=== PATIENT | male | born 1955 | race Caucasian/White ===

== ENCOUNTER 2018-08-29 00:10 | Inpatient (IN) | payer OTHER ==
[~2018-08-29] VITALS: Ht 172.7 cm; Wt 59.0 kg
--- NOTE | 2018-08-30 00:35 | NUR ---
PRE ADMISSION NOTE 63 y/o male seen at intake, A&O x 4 and is ambulatory with steady gait. 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 Pt reports last using heroin last night and is currently in withdrawal, reports last drinking ETOH this morning but denies feeling S/S of withdrawal at this time. Vital signs: BP 143/88, HR 70, RR 16, 02 98%, T 98.5, and pain 10/10. Pt reports he has pain in neck and back, which is chronic and is related to why he uses. Pt is stable to come to unit. Unit policies and protocols explained to pt. Endorsed to primary care nurse for continuation of care.
[2018-08-30] MEDS ORDERED: BUPRENORPHINE HCL 2 MG TAB.SUBL SL PRN (01:00)
[2018-08-30] MEDS ORDERED: IBUPROFEN 600 MG TABLET PO PRN (01:00)
[2018-08-30] MEDS ORDERED: MAGNESIUM HYDROXIDE 30 ML LIQUID UDC PO PRN (01:00)
[2018-08-30] MEDS ORDERED: MIRALAX 17 GM POWD.PACK PO PRN (01:00)
[2018-08-30] MEDS ORDERED: ONDANSETRON 4 MG/2 ML VIAL IM PRN (01:00)
[2018-08-30] MEDS ORDERED: THIAMINE HCL 200 MG/2 ML VIAL IM ONE (01:00)
[2018-08-30] MEDS ORDERED: ACETAMINOPHEN 325 MG TABLET PO PRN (01:00)
[2018-08-30] MEDS ORDERED: HYDROXYZINE PAMOATE 25 MG CAPSULE PO PRN (01:00)
[2018-08-30] MEDS ORDERED: LOPERAMIDE HCL 2 MG CAPSULE PO PRN ×2 (01:00)
[2018-08-30] MEDS ORDERED: CLONIDINE HCL 0.1 MG TABLET PO PRN (01:00)
[2018-08-30] MEDS ORDERED: DIAZEPAM 5 MG TABLET PO PRN (01:00)
[2018-08-30] MEDS ORDERED: DICYCLOMINE HCL 20 MG TABLET PO PRN (01:00)
[2018-08-30] MEDS ORDERED: MAG HYDROX/AL HYDROX/SIMETH 30 ML LIQUID UDC PO PRN (01:00)
[2018-08-30] MEDS ORDERED: ONDANSETRON ODT 4 MG TAB.RAPDIS SL PRN (01:00)
[2018-08-30] MEDS ORDERED: DIAZEPAM 10 MG TABLET PO PRN ×2 (01:00)
[2018-08-30 01:08] LABS: BASOPHILS % (AUTO) 0.5 % (0.0-2.0); EOSINOPHILS # (AUTO) 0.1 K/uL (0.0-0.7); EOSINOPHILS % (AUTO) 1.1 % (0.0-7.0); HEMATOCRIT 46.9 % (36.7-47.1); HEMOGLOBIN 15.6 g/dL (12.5-16.3); LYMPHOCYTES % (AUTO) 25.4 % (20.5-51.5); MEAN CORPUSCULAR HEMOGLOBIN 27.4 uug (23.8-33.4); MEAN CORPUSCULAR HGB CONC 33 g/dL (32.5-36.3); MEAN CORPUSCULAR VOLUME 82.7 fL (73.0-96.2); MONOCYTES # (AUTO) 0.5 K/uL (2.0-10.0); MONOCYTES % (AUTO) 6.8 % (0.0-11.0); NEUTROPHILS # (AUTO) 5.1 K/uL (1.8-8.9); NEUTROPHILS % (AUTO) 66.2 % (38.5-71.5); PLATELET COUNT (AUTO) 202 K/uL (152-348); RED BLOOD CELL COUNT(AUTO) 5.68 MIL/uL (4.06-5.63); WHITE BLOOD COUNT (AUTO) 7.8 K/uL (3.6-10.2)
[2018-08-30 01:19] LABS: *AMPHETAMINE, URINE NEGATIVE (NEGATIVE); *BARBITURATE, URINE NEGATIVE (NEGATIVE); *CANNABINOID, URINE NEGATIVE (NEGATIVE); *COCCAINE, URINE NEGATIVE (NEGATIVE); *OPIATE, URINE POSITIVE (NEGATIVE); *PHENCYCLIDINE SCREEN,URINE NEGATIVE (NEGATIVE)
[2018-08-30 01:25] LABS: ETHANOL < 3 MG/DL (0-0)
[2018-08-30] MEDS: METHOCARBAMOL 750 MG TABLET PO PRN ×2 (01:40→20:27)
[2018-08-30] MEDS: diphenhydrAMINE 50 MG CAPSULE PO PRN (01:40)
--- NOTE | 2018-08-30 01:40 | NUR ---
PRN Valium, Subutex , Benadryl, Robaxin and Motrin Patient presents with anxiety, restlessness, hot and cold sweats, stuffy nose, abdominal cramping, has bilateral hand tremors, sensitive to light , muscle aches and headache. COWS 12 and CIWA 8. Will monitor for effectiveness
[2018-08-30 01:47] LABS: ALANINE AMINOTRANSFERASE 20 U/L (16-63); ALKALINE PHOSPHATASE 63 U/L (50-136); AMYLASE 15 U/L (25-115); ASPARTATE AMINOTRANSFERASE 11 U/L (15-37); BILIRUBIN,TOTAL 1.2 mg/dL (0.2-1.0); CARBON DIOXIDE 30 mmol/L (21-32); CHLORIDE 103 mmol/L (98-107); CREATININE 1.1 mg/dL (0.6-1.3); GLUCOSE 105 mg/dL (74-106); LIPASE 90 U/L (73-393); POTASSIUM 3.8 mmol/L (3.5-5.1); TOTAL PROTEIN, SERUM 7.5 g/dL (6.4-8.2); UREA NITROGEN, BLOOD 11 mg/dL (7-18)
[2018-08-30 01:51] LABS: THYROID STIMULATING HORMONE 0.213 mIU/mL (0.358-3.740)
--- NOTE | 2018-08-30 02:00 | NUR ---
Admission note Patient arrived at the unit at 0055. Patient is a 63 year old male who presents to [facility] for ETOH and Opiate withdrawal. Body check done. Skin intact. Patient is full code and on regular diet. Patient reports PMH of anxiety and depression. Chronic back pain. Patient is not on medication for his anxiety and depression. No surgeries. No seizure history . Patient has no overdose, blackouts, suicide attempt and 5150 history. Patient lives in [place]. 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 He explained that he wants to better his life as the reason why he's seeking for treatment ."I want to save my job". He stated that his job is in jeopardy as the consequences for his drinking and using. Cravings and friends who are also using are the barriers for him getting and staying sober. He would continue to attend AA after his treatment here. Two years is his longest period sobriety in 2013. Substance Abuse History 1.Alcohol (Muna ) -started drinking at age 15. Patient is currently drinking 1.5 pint daily for 8 1/2 months. Last drink was 1.5 pint of muna on 08/29/18 in AM 2.Heroin (snort)-started using at age 15. Patient is currently snorting 0.5 gram daily for 8 1/2 months. Last use was 0.5 gram on 08/29/18 at 2 am Treatment History [facility] - 2 years ago - 60 days . He's been to two treatment center but he's unable to recall the name of the other facility. Patient does not have PCP. He refused Pneumonia and Flu vaccine. Educate patient. Patient smokes 1 pack of cigarette daily. Patient is not intoxicated. The typical withdrawal symptoms are depression, sweating , tremors, headache and nausea. The current withdrawal symptoms are anxiety, restlessness, hot and cold sweats, stuffy nose, abdominal cramping, has bilateral hand tremors, sensitive to light , muscle aches and headache. COW 12 and CIWA 8. UA provided and lab drawn. He brought one tube of ammonia lactate ointment. He states that he is taking Seroquel 100 mg at bedtime for sleep. Patient oriented to surroundings and how to use call light. Safety measures in place. Call light in reach. Will continue to monitor.
--- NOTE | 2018-08-30 02:40 | NUR ---
EZEQUIELN Valium, Subutex, Benadryl, Robaxin and Motrin Patient lying in bed with eyes closed. Respiration even and unlabored. Will continue to monitor Addendum: 08/30/18 at 0640 by ELMER GREGORIO LVN No facial grimacing
--- NOTE | 2018-08-30 04:00 | NUR ---
COWS and CIWA deferred Patient lying in bed with eyes closed. Respiration even and unlabored. Will continue to monitor.
[2018-08-30] MEDS ORDERED: QUET100T PO (04:42)
[2018-08-30] MEDS ORDERED: AMMO385C4 TP (04:53)
[2018-08-30 06:00] VITALS: BP 135/62
--- NOTE | 2018-08-30 07:28 | NUR ---
End of shift note Patient slept 4 hours. Fluid intake 500 ml. Voided x 1. NO BM. Monitored patient throughout shift. Patient presented with anxiety, restlessness, hot and cold sweats, stuffy nose, abdominal cramping, has bilateral hand tremors, sensitive to light , muscle aches and headache. Patient was given PRN Valium , Subutex, Benadryl , Robaxin and Motrin. Last cows 12 and CIWA 8. Will continue to monitor
--- NOTE | 2018-08-30 07:30 | NUR ---
Start Of Shift Report received from lead recoverer nurse. Patient is a 63 year old male who presents to [facility] for ETOH and Opiate withdrawal. Per lead recoverer nurse pt's last CIWA was 8 and COWS was a 12. Pt is on a 3 day Valium and 3 Day Subutex tapers. Upon start of shift pt noted laying in his bed with his eyes closed resting, breathing even and unlabored. When greeted pt stated " Im feeling terrible can I please have my morning medications so I can feel better". Pt's room appears unorganized, pt has water and soda bottles around the room. Pt appears anxious, sweaty and flushed. During assessment, pt is AOx4. Lung sounds clear bilaterally. Radial pulse is regular and non-bounding. Abdomen soft and non-tender. Pt's skin is warm and intact. pt denies any pain at the moment. Encouraged pt to drink plenty of fluids to keep hydrated compensate for the water lost through sweat and help speed up the detox process. Pt received PRN Valium 5mg Subutex 4mg, Benadryl 50mg, Robaxin 750mg and Motrin 600mg, for withdrawal symptoms, generalized pain and insomnia, medication was effective per lead recoverer nurse, pt slept a total of 4 hours last night. Bed in lowest position. Side rails up x2. Call light functioning and within reach. All needs attended and met. Will continue to monitor.
[2018-08-30 08:00] VITALS: BP 145/80
--- NOTE | 2018-08-30 08:00 | NUR ---
COWS:13 CIWA: 11 Pt has fine tremors, diaphoresis, anxiety and restlessness. Pt complains of chills and body aches. pt has generalized pain. Pt encouraged to drink more fluids to help with detox process. Will continue to monitor, support and encourage according to plan of care.
[2018-08-30] MEDS: MULTIVITAMINS,THERAPEUTIC TABLET PO SCH (09:00)
[2018-08-30] MEDS: DOCUSATE SODIUM 250 MG CAPSULE PO SCH (09:00)
[2018-08-30] MEDS: FOLIC ACID 1 MG TABLET PO SCH (09:00)
[2018-08-30] MEDS: THIAMINE HCL 100 MG TABLET PO SCH (09:00)
[2018-08-30] MEDS ORDERED: 3 DAY TAPER BUPRENORPHINE -SERENITY PROTOCOL SL PRN (11:45)
[2018-08-30] MEDS ORDERED: 3 DAY TAPER OF VALIUM-SERENITY PROTOCOL PO PRN (11:45)
[2018-08-30 12:00] VITALS: BP 124/70
--- NOTE | 2018-08-30 12:00 | NUR ---
CIWA 12/COWS 13 Pt has diaphoresis, anxiety restless legs, yawning agitation, Emotional volatility and restlessness. Pt complains of chills runny nose and fatigue. Pt encouraged to drink more fluids to help with detox process. Will continue to monitor, support and encourage according to plan of care
[2018-08-30] MEDS: DIAZEPAM 10 MG TABLET PO SCH ×2 (12:45→20:27)
[2018-08-30] MEDS: BUPRENORPHINE HCL 2 MG TAB.SUBL SL SCH ×2 (12:48→20:27)
[2018-08-30 16:00] VITALS: BP 125/77
--- NOTE | 2018-08-30 19:16 | NUR ---
End of Shift Report given to field sales representative nurse, Plan of care followed, Vital signs monitored closely Q4H. Withdrawals symptoms were closely monitored, medications given as schedule. Initial CIWA 11 COWS 13. Pt encouraged adequate PO fluid intake as tolerated to compensate for all the water lost in sweat as well as with helping speed up the detox process. Pt presented with diaphoresis, anxiety restless legs, yawning agitation, emotional volatility and restlessness during the day. Pt received all of the scheduled medications. Pt did not receive any PRN medications during the day. Last CIWA was a 10 COWS 11. Pt reported that Subutex and Valium have been working well at controlling the withdrawal symptoms. Pt ate all of the meals. Pt attended all the groups and activities to learn new coping skills to prevent relapse. Pt denies any SI/HI. All safety measures in place, bed in lowest locked position, call light within reach. All needs met and attended.
--- NOTE | 2018-08-30 19:30 | NUR ---
Start of Shift Patient Received. Per endorsement, patient was started on a 3 day Subutex and 3 day Valium taper. No PRN Medications administered. Last noted CIWA 14 and COWS 12. Patient has been noted to be compliant with medications and plan of care as ordered. Upon rounds patient is noted to be sleeping but verbally responsive upon entering the room. Patient is able to verbalize medications have been effective in minimizing signs and symptoms. All needs attended to promptly. Will continue plan of care as ordered.
[2018-08-30 20:12] VITALS: BP 132/73
[2018-08-30] MEDS: QUETIAPINE FUMARATE 100 MG TABLET PO SCH (20:27)
--- NOTE | 2018-08-30 20:30 | NUR ---
PRN Medication Administration patient is noted verbalizing increased back aches. PRN Robaxin administered with routine medications. Will continue to monitor.
--- NOTE | 2018-08-30 21:30 | NUR ---
PRN Medication Reassessment Patient is noted in bed, awake, lights off, and watching TV. Patient is able to verbalize "I feel good. Im just going to make my way to sleep soon." PRN Robaxin noted to be effective. Will continue to monitor.
[2018-08-31 00:30] VITALS: BP 128/79
--- NOTE | 2018-08-31 00:30 | NUR ---
COWS and CIWA Patient is noted in bed with eyes closed. Breathing even and non labored. No restlessness or discomfort noted. Vitals rendered. Patient is noted to sleep through vitals. CIWA and COWS unable to be completed as per order. Will continue to monitor.
[2018-08-31 04:09] LABS: HEPATITIS B SURFACE AG Negative (Negative)
--- NOTE | 2018-08-31 04:33 | NUR ---
COWS and CIWA Patient is noted in bed with eyes closed. Breathing even and non labored. No signs of facial grimacing or restlessness noted. COWS and CIWA not able to be completed. Vitals refused. All needs attended to promptly. Will continue to monitor.
--- NOTE | 2018-08-31 07:17 | NUR ---
End of Shift Patient is in bed with eyes closed. Breathing even and non labored. No signs of restlessness or discomfort noted. Patient continues on a 3 day Subutex and 3 day Valium taper. He received PRN Robaxin with medication noted to be effective. Last noted CIWA 14 and COWS 12. Patient has been noted to be compliant with medications and plan of care as ordered. Patient is able to verbalize medications have been effective in minimizing signs and symptoms. All needs attended to promptly. Will endorse to continue plan of care as ordered.
--- NOTE | 2018-08-31 07:30 | NUR ---
START OF SHIFT Endorse rcvd from ongoing nurse, client is in room, a/o x 4, he presents with depressed mood, flat affect, avoidant gaze, fine tremors, clammy skin, and difficulty concentrating. Client reports nausea, headache, myalgia, and fatigue. VTE 2, Intermittent Pneumatic CD at bedside, client instructed on its use, he stated, "I will put them on, tonight when I go to sleep." Encourage client to increase PO fluid as tolerated to facilitated detox. Last CIWA / 12 @ 2100. Client had an uneventful night, he slept 8 hrs. Seizure precautions. Bed in lowest/locked position, side rails x 2 up/padded. Call light within reach.
[2018-08-31 08:16] VITALS: BP 128/66
[2018-08-31] MEDS: BUPRENORPHINE HCL 2 MG TAB.SUBL SL SCH ×3 (08:36→20:10)
[2018-08-31] MEDS: THIAMINE HCL 100 MG TABLET PO SCH (08:36)
[2018-08-31] MEDS: FOLIC ACID 1 MG TABLET PO SCH (08:36)
[2018-08-31] MEDS: MULTIVITAMINS,THERAPEUTIC TABLET PO SCH (08:36)
[2018-08-31] MEDS: DOCUSATE SODIUM 250 MG CAPSULE PO SCH (08:36)
--- NOTE | 2018-08-31 08:36 | NUR ---
CIWA 14 / COWS 14 Client is in bed, noted with avoidant gaze, difficulty concentrating, restless, clammy skin, and fine tremors. Client reports feeling depressed , tremors, headache, nausea, abdominal cramping, anxiety, restlessness, hot and cold sweats, runny nose, and fatigue. Scheduled Valium 5mg PO, Subutex 2mg SL administered. Encourage client to attend group therapy to learn skills to maintain sober. Call light within reach.
--- NOTE | 2018-08-31 08:40 | NUR ---
Client refused PPD test he stated, "I just had one a couple of months ago, it was negative." Client denies any cough, chest pain, or night sweats. MD notified.
[2018-08-31] MEDS ORDERED: DIAZEPAM 5 MG TABLET PO SCH (09:00)
[2018-08-31] MEDS ORDERED: TUBERCULIN,PURIF.PROT.DERIV. 5 TU/0.1 ML TEST ID ONE (09:00)
--- NOTE | 2018-08-31 10:55 | NUR ---
Therapist prompted client to attend group therapy.
--- NOTE | 2018-08-31 12:09 | NUR ---
CIWA 14 / COWS 14 & PRN Bentyl 20mg PO for abdominal spasms. Client reports tremors, headache, nausea, anxiety, tachycardic, restlessness, feverish, sweats, congested nose, and fatigue. Above PRN administered. Encourage client to increase Po fluid as tolerated to maintain rehydration and facilitate detox. Call light within reach.
[2018-08-31 12:44] VITALS: BP 138/82
--- NOTE | 2018-08-31 13:09 | NUR ---
Reassess PRN Bentyl 20mg, client reports slight relief from abdominal spasms.
--- NOTE | 2018-08-31 13:22 | NUR ---
Therapist prompted client to attend all group therapy sessions.
[2018-08-31] MEDS ORDERED: 3 DAY TAPER BUPRENORPHINE -SERENITY PROTOCOL SL PRN (14:15)
[2018-08-31] MEDS ORDERED: [UNRECOGNIZED DRUG - REMARK] PO PRN (14:15)
[2018-08-31] MEDS ORDERED: MELOXICAM 7.5 MG TABLET PO PRN (14:30)
[2018-08-31] MEDS ORDERED: BUPRENORPHINE HCL 2 MG TAB.SUBL SL SCH (15:00)
[2018-08-31] MEDS ORDERED: BUPRENORPHINE HCL 2 MG TAB.SUBL SL ONE (15:15)
[2018-08-31] MEDS: DIAZEPAM 10 MG TABLET PO SCH ×3 (15:31→20:09)
[2018-08-31 16:45] VITALS: BP 140/86
--- NOTE | 2018-08-31 17:35 | NUR ---
CIWA 14 / COWS 14 Client reports tremors, headache, nausea, anxiety, restlessness, feverish, sweats, congested nose, and fatigue. Scheduled Valium 10mg Po administered. Encourage client to increase PO fluid as tolerated to maintain rehydration and facilitate detox. Call light within reach.
--- NOTE | 2018-08-31 19:18 | NUR ---
END OF SHIFT Endorse client to incoming nurse, client is in room continues to present with anxious mood, flat affect, avoidant gaze, tremors, clammy skin, nausea, difficulty concentrating, poor appetite, chills, sweats, restless legs, depression, and difficulty thinking clearly. Last CIWA 14 / COWS 14 @ 1730. PRN medications administered and noted per protocol. Client is compliant with 1/3 of group therapy. PO fluid intake 888mL, void x 2, stool x 1. Consumes 50-100% of meals. Seizure precautions in place. Bed in lowest/locked position, side rails x 2 up/padded. Call light within reach.
--- NOTE | 2018-08-31 19:30 | NUR ---
Start of Shift Patient Received. Patient continues on a modified Subutex and Valium taper. He was seen and evaluated by MD with taper extended to a 4 day Subutex and Valium tapers. He received PRN Bentyl with medication noted to be effective. Last noted CIWA 14 and COWS 14. Upon rounds patient is noted in bed, awake alert and verbally responsive. Breathing even and non labored. Patient is noted to be restless, irritable, and verbalizing I want my medications as early as I can so I can go to sleep. Patient is able to verbalize medications have been effective in minimizing signs and symptoms. All needs attended to promptly. Will continue plan of care as ordered.
[2018-08-31 20:02] VITALS: BP 141/72
[2018-08-31] MEDS: QUETIAPINE FUMARATE 100 MG TABLET PO SCH (20:09)
[2018-08-31] MEDS: METHOCARBAMOL 750 MG TABLET PO PRN (20:09)
--- NOTE | 2018-08-31 20:11 | NUR ---
PRN Medication Administration Patient is noted verbalizing increased back aches. PRN Robaxin administered with routine medications. Will continue to monitor.
--- NOTE | 2018-08-31 21:15 | NUR ---
PRN Medication Reassessment Patient is noted in bed awake, eating snacks, and watching TV. patient is able to verbalize medication was effective in minimizing signs and symptoms of withdrawal. Patient denies any pain. PRN Robaxin noted to be effective. Will continue to monitor.
[2018-09-01 00:28] VITALS: BP 129/78
--- NOTE | 2018-09-01 00:30 | NUR ---
COWS and CIWA assessment Patient is noted in bed with eyes closed. Breathing even and non labored. Vitals rendered. Patient is noted to remain asleep and unable to complete COWS and CIWA assessment as per order. Will continue to monitor.
--- NOTE | 2018-09-01 04:15 | NUR ---
COWS and CIWA Assessment Patient is noted in bed with his eyes closed. Breathing even and non labored. Patient noted to refuse vitals. CIWA and COWS not able to be completed as per order. Will continue to monitor.
--- NOTE | 2018-09-01 07:11 | NUR ---
End of Shift Patient is noted in bed with eyes closed. Breathing even and non labored. Patient continues on a modified Subutex and Valium taper. He received PRN Robaxin with medication noted to be effective. Last noted CIWA 11 and COWS 11. Patient was noted to sleep a total of 7 hours. Patient is able to verbalize medications have been effective in minimizing signs and symptoms. All needs attended to promptly. Will endorse to continue plan of care as ordered.
[2018-09-01 08:00] VITALS: BP 171/88
--- NOTE | 2018-09-01 08:00 | NUR ---
Start of Shift Notes/COWS/CIWA Assessment: Endorsement received from night nurse. Patient is a 63 year old male admitted for ETOH and opiate withdrawal who was placed on a modified 4-day Valium and Subutex taper as ordered. No adverse reactions noted. Per night report, patient was given PRN Robaxin for pain. Slept for 7 hours. Last COWS 11 and CIWA 11. Received patient in his room. Room is malodorous of garbage, and untouched food. Dirty linen and clothes on the floor. Patient appears disheveled, unkempt, and with worried facial expression. He was noted to be moaning and appears to be in pain with facial grimacing noted. He rates generalized pain as a 8 out of 10. He was noted to be tremulous to BUE and with noted agitation and easily irritable. COWS 10/CIWA 14. Educated patient on his current plan of care and his medication regimen. Encouraged oral fluid intake and encouraged group participation to learn new skills to prevent relapse. Will continue to monitor.
[2018-09-01] MEDS: METHOCARBAMOL 750 MG TABLET PO PRN ×2 (08:32→21:04)
[2018-09-01] MEDS: MULTIVITAMINS,THERAPEUTIC TABLET PO SCH (08:32)
[2018-09-01] MEDS: THIAMINE HCL 100 MG TABLET PO SCH (08:32)
[2018-09-01] MEDS: DOCUSATE SODIUM 250 MG CAPSULE PO SCH (08:32)
[2018-09-01] MEDS: DIAZEPAM 5 MG TABLET PO SCH ×3 (08:33→21:04)
[2018-09-01] MEDS: BUPRENORPHINE HCL 2 MG TAB.SUBL SL SCH ×4 (08:33→21:04)
[2018-09-01] MEDS: FOLIC ACID 1 MG TABLET PO SCH (08:33)
--- NOTE | 2018-09-01 08:35 | NUR ---
Mobic 7.5mg/Robaxin 750mg/Clonidine 0.1mg PO given: Patient was noted with generalized pain of 8 out of 10 per his verbalization and with elevated blood pressure of 171/88, Pulse 91. Medicated patient with Mobic7.5mg, Robaxin 750 mg and Clonidine 0.1mg PO as ordered. Will monitor for effectiveness.
[2018-09-01] MEDS ORDERED: BUPRENORPHINE HCL 2 MG TAB.SUBL SL SCH (09:00)
[2018-09-01] MEDS ORDERED: DIAZEPAM 5 MG TABLET PO SCH (09:00)
--- NOTE | 2018-09-01 09:35 | NUR ---
Re-assessment: Mobic, Robaxin, Clonidine Patient's blood pressure 145/89. Pulse 87. PRN Clonidine effective in reducing patient's blood pressure. Patient verbalizes that his pain level is now a 4 out of 10. PRN Mobic and Robaxin effective.
[2018-09-01 12:00] VITALS: BP 120/76
--- NOTE | 2018-09-01 12:32 | NUR ---
COWS/CIWA Assessment: COWS 9, CIWA 12, patient presented with gross tremors, anxiety, agitation, diaphoresis, nasal stuffiness, myalgia, chills, hot flashes, goosebumps, and generalized discomfort. Will medicate patient as ordered. PRNs offered.
[2018-09-01] MEDS: KETOROLAC TROMETHAMINE 30 MG INJ IM PRN (14:19)
--- NOTE | 2018-09-01 14:19 | NUR ---
Toradol 30 mg IM given: Patient continues to complain of 8/10 generalized pain. Non-pharmacological interventions provided but ineffective. Notified Dr. Berman. Administered Toradol 30 mg IM as ordered. Will monitor for effectiveness.
--- NOTE | 2018-09-01 14:49 | NUR ---
Re-assessment: Toradol Patient verbalizes that PRN Toradol was effective. He verbalizes his pain level is now a 4/10 .
[2018-09-01 16:00] VITALS: BP 107/74
--- NOTE | 2018-09-01 16:32 | NUR ---
COWS/CIWA Assessment: COWS 9/CIWA 12, patient continues to present with increased anxiety, difficulty concentrating, myalgia, fatigue, generalized discomfort, agitation, anhedonia, facial flushing, diaphoresis, and gross tremors. PRNs offered. Support provided. Will continue to monitor.
--- NOTE | 2018-09-01 19:02 | NUR ---
End of Shift Notes: Patient continues to be on a modified 4-day Subutex and 4-day Valium taper as ordered. No adverse reactions noted. VS monitored closely. Noted with elevated blood pressure in the AM requiring patient to be medicated with Clonidine at 0835 as ordered with help. Withdrawal symptoms were closely monitored. Initial COWS CIWA 14, patient presented with facial flushing, generalized discomfort, gross tremors, anxiety, agitation, malaise, fatigue, generalize discomfort, diaphoresis, anhedonia, and generalized discomfort. Medicated patient with Mobic, and Robaxin as ordered at 0835 with help. Last COWS 12. Patient verbalizes that Subutex and Valium has been effective in reducing his withdrawal symptoms. Patients Mobic was discontinued by MD at noon and was changed to Toradol 30 mg IM as ordered. TOradol 30 mg IM given at 1419 with help. Appetite good. Binges on food at times. Reinforcement to diet regimen encouraged. All needs met and attended. Will continue to monitor closely.
--- NOTE | 2018-09-01 19:30 | NUR ---
Start of Shift Patient Received. Patient continues on a modified 4 day Subutex and Ativan taper. Patient is noted with increased anxiety, agitation, restlessness, body aches, chills and sweats. Patient is noted to be compliant with plan of care as ordered. He was given PRN Mobic, Robaxin, Clonidine, and Toradol with medication noted to be effective. Last noted COWS 9 and CIWA 12. Patient is able to verbalize that medications have been effective in minimizing signs and symptoms of withdrawal. All needs attended to promptly. Will continue plan of care as ordered.
[2018-09-01 20:55] VITALS: BP 139/78
[2018-09-01] MEDS: QUETIAPINE FUMARATE 100 MG TABLET PO SCH (21:04)
--- NOTE | 2018-09-01 21:11 | NUR ---
PRN Medication Administration Patient is noted verbalizing increased body aches 05/30. PRN Robaxin administered with routine medication. Will continue to monitor.
--- NOTE | 2018-09-01 22:15 | NUR ---
PRN Medication Reassessment Patient is noted in bed with eyes closed. Breathing even and non labored. No signs of facial grimacing or restlessness noted. PRN Robaxin noted to be effective. Will continue to monitor.
--- NOTE | 2018-09-02 00:36 | NUR ---
COWS and CIWA Assessment Patient is noted in bed with eyes closed. Breathing even and non labored. Patient is noted to refuse vital signs. CIWA and COWS not able to be completed as per order. Will continue to monitor.
--- NOTE | 2018-09-02 04:40 | NUR ---
COWS and CIWA Assessment Patient is noted in bed with eyes closed. Breathing even and non labored. Patient is noted to refuse vital signs. CIWA and COWS are not able to be completed as per order. Will continue to monitor.
--- NOTE | 2018-09-02 06:58 | NUR ---
End of Shift Patient is in bed with eyes closed. Breathing even and non labored. Patient continues on a modified 4 day Subutex and Ativan taper. Patient is noted with increased anxiety, agitation, restlessness, body aches, chills and sweats. He was given PRN Robaxin with medication noted to be effective. Last noted COWS 9 and CIWA 10. Patient is able to verbalize that medications have been effective in minimizing signs and symptoms of withdrawal. He is noted to sleep a total of 7 hours. All needs attended to promptly. Will endorse to continue plan of care as ordered.
[2018-09-02 08:00] VITALS: BP 149/71
--- NOTE | 2018-09-02 08:00 | NUR ---
Start of Shift Notes/COWS/CIWA Assessment: Endorsement received from night nurse. Patient is a 63 year old male admitted for ETOH and opiate withdrawal who was placed on a modified 4-day Valium and Subutex taper as ordered. No adverse reactions noted. Per night report, patient was given PRN Robaxin for pain. Slept for a total of 7 hours. Last COWS 9 and CIWA 10. Received patient in his room. Room is malodorous of garbage, and untouched food and empty. Dirty linen and clothes on the floor. Patient appears disheveled, unkempt, and with worried facial expression. He was noted to be tremulous to BUE and with noted agitation and easily irritable. COWS 10/CIWA 14. Educated patient on his current plan of care and his medication regimen. Encouraged oral fluid intake and encouraged group participation to learn new skills to prevent relapse. Will continue to monitor.
[2018-09-02] MEDS: MULTIVITAMINS,THERAPEUTIC TABLET PO SCH (08:28)
[2018-09-02] MEDS: THIAMINE HCL 100 MG TABLET PO SCH (08:28)
[2018-09-02] MEDS: DOCUSATE SODIUM 250 MG CAPSULE PO SCH (08:28)
[2018-09-02] MEDS: METHOCARBAMOL 750 MG TABLET PO PRN (08:28)
[2018-09-02] MEDS: DIAZEPAM 5 MG TABLET PO SCH ×2 (08:28→20:31)
[2018-09-02] MEDS: FOLIC ACID 1 MG TABLET PO SCH (08:28)
--- NOTE | 2018-09-02 08:28 | NUR ---
Robaxin 750 mg PO given: Patient complains of 04/30 generalized myalgia. [facility] Addendum: 09/02/18 at 0832 by RIP WALLER LVN Additional notes: Medicated patient with Robaxin 750 mg PO as ordered after non-pharmacological interventions were ineffective. Will monitor for effectiveness.
[2018-09-02 08:40] LABS: BILIRUBIN,DIRECT 0.1 mg/dL (0.0-0.2); BILIRUBIN,TOTAL 0.4 mg/dL (0.2-1.0); TOTAL PROTEIN, SERUM 6.3 g/dL (6.4-8.2)
[2018-09-02] MEDS ORDERED: BUPRENORPHINE HCL 2 MG TAB.SUBL SL SCH (09:00)
--- NOTE | 2018-09-02 09:28 | NUR ---
Re-assessment: Robaxin Patient verbalizes relief from generalized myalgia and reports his pain level is a 2 out of 10. PRN Robaxin effective.
[2018-09-02 12:00] VITALS: BP 133/77
[2018-09-02] MEDS: KETOROLAC TROMETHAMINE 30 MG INJ IM PRN ×2 (12:14→20:33)
--- NOTE | 2018-09-02 12:14 | NUR ---
COWS/CIWA Assessment/Toradol 30 mg IM given: COWS 8/CIWA 12, patient continues to present with s/s of withdrawal m/b increased anxiety, agitation, diaphoresis, myalgia, chills, hot flashes, difficulty concentrating, fatigue and malaise. He verbalizes generalized pain of 8 out of 10. Medicated patient with Toradol 30 mg IM as ordered. Will monitor for effectiveness.
--- NOTE | 2018-09-02 12:44 | NUR ---
Re-assessment: Toradol Patient reports that his pain level is now a 3 out of 10. PRN Toradol was effective.
[2018-09-02 16:00] VITALS: BP 132/92
--- NOTE | 2018-09-02 16:40 | NUR ---
COWS/CIWA Assessment: COWS 8/CIWA 12, patient continues to present with s/s of withdrawal m/b increased anxiety, agitation, diaphoresis, myalgia, , difficulty concentrating, fatigue and malaise. Offered PRNs meds. Support provided.
--- NOTE | 2018-09-02 19:05 | NUR ---
End of Shift Notes: Patient continues to be on a modified 4-day Subutex and 4-day Valium taper as ordered. No adverse reactions noted. VS monitored closely. No significant abnormalities noted. Withdrawal symptoms were closely monitored. Initial COWS /CIWA 14, patient presented with facial flushing, generalized myalgia, gross tremors, anxiety, agitation, malaise, fatigue, generalize discomfort, diaphoresis, anhedonia, and generalized discomfort. Medicated patient with Robaxin as ordered at 0828 and Toradol 30 mg IM at 1214 with help. Last COWS / 12. Patient verbalizes that Subutex and Valium has been effective in reducing his withdrawal symptoms. Appetite good. Binges on food at times. Reinforcement to diet regimen encouraged. All needs met and attended. Will continue to monitor closely.
--- NOTE | 2018-09-02 19:30 | NUR ---
Start of shift note Received report from day shift nurse. Patient is a 63 year old male admitted for ETOH/Opiate withdrawal. Patient is on 3rd day of his Subutex and 3rd day of his Valium taper. Patient was given PRN Robaxin and Toradol IM. Last COWS 8 and CIWA 12. Patient alert and oriented x 4. Patient appears disheveled and worried. Safety measures in place. Call light in within reach. Will continue to monitor.
[2018-09-02 20:00] VITALS: BP_SYST 107; BP_SYST 140; BP_DIAS 60; BP_DIAS 85
--- NOTE | 2018-09-02 20:00 | NUR ---
COWS and CIWA assessment Patient is anxious, restless, worried, intermittent perspiration, tremors and generalized body aches. COWS 10 and CIWA 11.
--- NOTE | 2018-09-02 20:00 | NUR ---
CIWA assessment Patient is anxious, restless, irritable, agitated, sweating, restless legs, sensitive to light and generalized body aches. CIWA 11. Addendum: 09/03/18 at 0131 by ELMER GREGORIO LVN ERROR: CIWA assessment is for another patient
[2018-09-02] MEDS: BUPRENORPHINE HCL 2 MG TAB.SUBL SL SCH (20:31)
--- NOTE | 2018-09-02 20:33 | NUR ---
PRN Toradol IM administration Patient c/o generalized body aches 06/30. Will monitor for effectiveness
[2018-09-02] MEDS: QUETIAPINE FUMARATE 100 MG TABLET PO SCH (20:34)
--- NOTE | 2018-09-02 21:03 | NUR ---
PRN Toradol IM re-assessment Patient states Toradol is helpful and effective. Pain is lessened. Will continue to monitor.
[2018-09-03] VITALS: BP 132/78
[2018-09-03 04:00] VITALS: BP 134/80
--- NOTE | 2018-09-03 07:13 | NUR ---
End of shift note Patient slept 7 hours. Fluid intake 1,546 ml. Voided x 3 . BM x 1 . Patient was anxious, restless, worried, had intermittent perspiration, tremors and generalized body aches. Scheduled medication and taper was given with no adverse reaction. Patient was given PRN Toradol IM. Safety measures in place. Call light in reach. Will continue to monitor. Last COWS 10 and CIWA 11.
[2018-09-03 08:00] VITALS: BP 128/66
--- NOTE | 2018-09-03 08:00 | NUR ---
Start of Shift Notes/COWS/CIWA Assessment: Endorsement received from night nurse. Patient is a 63 year old male admitted for ETOH and opiate withdrawal who was placed on a modified 4-day Valium and Subutex taper as ordered. This is patient's 4th day of his taper. Per night report, patient was given PRN Toradol for pain. Slept for a total of 7 hours. Last COWS 10 and CIWA 11. Received patient in his room. Alert and oriented x 4. Denies S/I or H/I noted. No AV hallucinations noted. Dirty linen and clothes on the floor. Patient appears disheveled, unkempt, and with worried facial expression. He was noted to be tremulous to BUE and with noted agitation and easily irritable. He currently complains of 8/10 tight pain to his lower back. COWS 10/CIWA 12. Educated patient on his current plan of care and his medication regimen. Encouraged oral fluid intake and encouraged group participation to learn new skills to prevent relapse. Will continue to monitor.
[2018-09-03] MEDS: KETOROLAC TROMETHAMINE 30 MG INJ IM PRN ×2 (08:09→21:06)
[2018-09-03] MEDS: THIAMINE HCL 100 MG TABLET PO SCH (08:09)
[2018-09-03] MEDS: DOCUSATE SODIUM 250 MG CAPSULE PO SCH (08:09)
[2018-09-03] MEDS: MULTIVITAMINS,THERAPEUTIC TABLET PO SCH (08:09)
[2018-09-03] MEDS: FOLIC ACID 1 MG TABLET PO SCH (08:09)
[2018-09-03] MEDS: METHOCARBAMOL 750 MG TABLET PO PRN (08:09)
--- NOTE | 2018-09-03 08:09 | NUR ---
Toradol 30 mg IM/Robaxin 750 mg PO given: Toradol 30 mg IM given and Robaxin 750 mg PO given due to complains of 6/10 "tight" pain to his lower back. Will monitor for effectiveness.
--- NOTE | 2018-09-03 08:37 | NUR ---
Clarification: Pt scheduled to be discharged tomorrow but has 2100 dose of 2mg Subutex scheduled. MD made aware with order to change time of 2100 dose to 0900. Order noted and carried out.
--- NOTE | 2018-09-03 08:39 | NUR ---
Re-assessment: Toradol Patient reports that his pain level is now a 3 out of 10. PRN Toradol effective.
[2018-09-03] MEDS ORDERED: BUPRENORPHINE HCL 2 MG TAB.SUBL SL ONE (09:00)
--- NOTE | 2018-09-03 09:09 | NUR ---
Re-assessment: Robaxin Patient verbalizes that his pain is now a 3 out of 10. PRN Robaxin effective.
[2018-09-03 12:00] VITALS: BP 135/89
--- NOTE | 2018-09-03 12:33 | NUR ---
COWS/CIWA Assessment: COWS 6, CIWA 12, patient continues to present with s/s of withdrawal. He complains of generalized discomfort, myalgia, anxiety and agitation. Able to participate in group and activities. Will continue to monitor and encourage oral fluid intake. Will continue to monitor.
--- NOTE | 2018-09-03 15:11 | NUR ---
Miralax 17 gm PO given: Patient noted with complain of constipation. Stating "It hurts, it does not want to come out." Oral fluids encouraged. Medicated patient with Miralax 17 gm PO as ordered. Will monitor for effectiveness.
--- NOTE | 2018-09-03 15:40 | NUR ---
Fleet Enema 1 NJ given: Patient request immediate relief for constipation. Notified MD Fowler. Patient education provided but patient insisted on immediate relief. Notified Dr. Fowler with orders to administer Fleet Enema 1 NJ as ordered. Medicated patient with Fleet Enema 1 NJ as ordered. Will monitor for effectiveness.
[2018-09-03] MEDS ORDERED: FLEET ENEMA 133 ML BOTTLE RC ONE (15:45)
[2018-09-03 16:00] VITALS: BP 135/75
--- NOTE | 2018-09-03 16:09 | NUR ---
COWS/CIWA Assessment: COWS 6, CIWA 12, patient continues to present with gross tremors, anxiety, agitation, diaphoresis, myalgia, and generalized discomfort. Will continue to monitor.
--- NOTE | 2018-09-03 16:11 | NUR ---
Re-assessment: Miralax No relief noted from Miralax at this time. Will continue to monitor.
--- NOTE | 2018-09-03 16:30 | NUR ---
Re-assessment: Fleet Enema Patient reports x 1 episode of small soft formed stools after administration of Fleet Enema. Oral fluids encouraged.
--- NOTE | 2018-09-03 19:04 | NUR ---
End of Shift Notes: Patient continues to be on a modified 4-day Subutex and 4-day Valium taper as ordered. No adverse reactions noted. This is patients last day of his taper and will be discharging tomorrow. VS monitored closely. No significant abnormalities noted. Withdrawal symptoms were closely monitored. Initial COWS 12, patient presented with facial flushing, generalized myalgia, gross tremors, anxiety, agitation, malaise, fatigue, generalize discomfort, diaphoresis, anhedonia, and generalized discomfort. Medicated patient with Robaxin and Toradol at 0809 with help. Last COWS . Patient verbalizes that Subutex and Valium has been effective in reducing his withdrawal symptoms. PRN Miralax and OT Fleet enema given for constipation with little help. Appetite good. Reinforcement to diet regimen encouraged. All needs met and attended. Will continue to monitor closely.
--- NOTE | 2018-09-03 19:30 | NUR ---
START OF SHIFT Pt is a 63 year old male admitted for ETOH/Opiate withdrawal. Pt has completed his taper medications and is scheduled for discharge tomorrow. Last COWS=6, CIWA=12. Per report,PRN Miralax and OT Fleet enema given for constipation and were effective.Denies any constipation at this time.PO fluids encouraged.Pt was also given Robaxin and Toradol and were effective.Pt is A/A/O X 4, received lying in bed, appears anxious,c/o myalgia,malaise and generalized discomfort.Encouraged to verbalize needs and concerns. Safety measures in place. Call light within reach. Will continue to monitor.
[2018-09-03 20:00] VITALS: BP 130/73
--- NOTE | 2018-09-03 20:00 | NUR ---
COWS/CIWA Assessment: COWS 6, CIWA 10, pt lying in bed,c/o anxiety, agitation, diaphoresis, myalgia, and generalized discomfort. Will continue to monitor.
[2018-09-03] MEDS: QUETIAPINE FUMARATE 100 MG TABLET PO SCH (20:43)
[2018-09-03] MEDS: diphenhydrAMINE 50 MG CAPSULE PO PRN (21:05)
--- NOTE | 2018-09-03 21:06 | NUR ---
PRN MEDS PRN Toradol 30 mg IM given for generalized pain 08/30.PRN Vistaril and Benadryl given as ordered for c/o anxiety and insomnia respectively; will monitor for effectiveness.
--- NOTE | 2018-09-03 22:00 | NUR ---
PRN MEDS ARE EFFECTIVE.PT IS CALM AND RESTING IN BED WITH EYES CLOSED.NO S/S OF DISTRESS NOTED.WILL MONITOR.
--- NOTE | 2018-09-04 | NUR ---
COWS / CIWA Assessment Patient is resting in bed with eyes closed. Breathing even and non labored, v/s refused. Will continue to monitor.
--- NOTE | 2018-09-04 04:00 | NUR ---
COWS / CIWA Assessment Patient is resting in bed with eyes closed. Breathing even and non labored, v/s refused. Will continue to monitor.
--- NOTE | 2018-09-04 07:40 | NUR ---
START OF SHIFT Pt is a 63 yr old male, AA&Ox4. Pt was admitted on 08/30/18 for ETOH/Opiate withdrawal and has completed a 3 day Subutex and 3 day Valium taper as ordered. Received report from night warehouse selector nurse, Pt received Toradol PRN, Vistaril PRN and Benadryl PRN during the night. Medication was effective. Pt slept for 7 hrs. Last COWS score was 6 and CIWA score was 10. Pt is c/o anxiety but states he is able to cope with anxiety level. Skin is intact, warm and dry to touch. Pt is to be discharged today to [facility]. Safety precautions observed. will continue to monitor.
[2018-09-04 08:07] LABS: TRIIODOTHYRONINE, FREE 2.5 pg/mL (2.0-4.4)
[2018-09-04] MEDS: DOCUSATE SODIUM 250 MG CAPSULE PO SCH (09:09)
[2018-09-04] MEDS: FOLIC ACID 1 MG TABLET PO SCH (09:09)
[2018-09-04] MEDS: THIAMINE HCL 100 MG TABLET PO SCH (09:09)
[2018-09-04] MEDS: MULTIVITAMINS,THERAPEUTIC TABLET PO SCH (09:09)
--- NOTE | 2018-09-04 10:00 | NUR ---
DISCHARGED NOTE Pt is a 63 yr old male, AA&Ox4. Pt was admitted on 08/30/18 for ETOH/Opiate withdrawal and has completed a 3 day Subutex and 3 day Valium taper as ordered. Pt has been cooperative with medication regimen and plan of care. Pt was c/o anxiety but is able to cope with anxiety level. No SI/HI noted. Pt was educated on discharged summary and plan of care. Pt was able to verbalize understanding. Pt was discharged off the unit at 0943 in stable condition. Pt was discharged to [facility]. Pt left with all belongings, valuable and home medications.
== END 2018-09-04 09:43 | DRG 895 ==
LOC: SRC 08-30 00:12
PROVIDERS: ADMIT Family Medicine Addiction Medicine; ATTEND Family Medicine Addiction Medicine
PROC: HZ2ZZZZ Detoxification Services for Substance Abuse Treatment (ICD-10-PCS; principal; 2018-08-30)
PROC: HZ41ZZZ Group Counseling for Substance Abuse Treatment, Behavioral (ICD-10-PCS; 2018-08-31)
PROC: HZ31ZZZ Individual Counseling for Substance Abuse Treatment, Behavioral (ICD-10-PCS; 2018-08-31)
DX: F10.230 Alcohol dependence with withdrawal, uncomplicated (principal); F11.23 Opioid dependence with withdrawal; Y90.0 Blood alcohol level of less than 20 mg/100 ml; F17.210 Nicotine dependence, cigarettes, uncomplicated; F41.1 Generalized anxiety disorder; F32.9 Major depressive disorder, single episode, unspecified; G89.29 Other chronic pain; M54.5 Low back pain; G47.00 Insomnia, unspecified; R94.6 Abnormal results of thyroid function studies
CPT/HCPCS: 36415; 70030-TC; 80307; 80361; 83690; 83735; 84443; 84480; 84481; 85025; 86592; 86705; 86803; 87340; 87806; G0480; J1885; Q0163